=== PATIENT | female | born 1930 | race Asian ===

== ENCOUNTER 2019-08-06 11:48 | Inpatient (IN) | payer OTHER ==
[~2019-08-06] VITALS: Ht 152.4 cm; Wt 47.3 kg
[2019-08-06 11:50] VITALS: Ht 152.4 cm; Wt 47.3 kg
--- NOTE | 2019-08-06 11:59 | NUR ---
STRAIGHT CATH DONE TOLERATED WELL BY PT, URINE COLLECTED SENT TO LAB
--- NOTE | 2019-08-06 12:02 | NUR ---
PER MEDIC PT FAMILY STS THAT SHE HAD A "SYNCOPAL" EPISODE AT 1100. PER MEDIC PT FAMILY STS THAT SHE WAS UNRESPONSIVE. PER MEDIC ON ARRIVAL PT WAS ALERT AND OREITNED TO SELF. BG112, PER MEDIC PT WAS HYPOTENSIVE. PT BP RISING WITH FLUIDS GIVEN BY MEDIC. FAMILY STS PT WAS DIAGNOSED WITH UTI AND GIVEN MEDICATIONS. PER FAMILY PT DID NOT HAVE LOC OR HIT HER HEAD. PER FAMILY PT STS THAT SHE DID HURT HER LT KNEE. PER FAMILY STS A TEMP 101 YESTERDAY. PER FAMILY PT HAD STROKE AND HAS LEFT SIDED WEAKNESS. PT ABLE TO ANSWER QUESTIONS FROM FAMILY. 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 PT DENIES ANY ABDOMINAL PAIN OR ANY OTHER COMPLAINTS. PT HAS "PAIN" BANDAGE ON LEFT KNEE PER FAMILY PAIN MEDIATION PATCH. NO FACIAL DROOP NOTED. RESP E/U. RESP E/U. WILL CONTINUE TO MONITOR.
--- NOTE | 2019-08-06 12:07 | NUR ---
DR. CARMONA AT BEDSIDE.
--- NOTE | 2019-08-06 12:13 | NUR ---
CHAPARRONED RECTAL EXAM FOR OCCULT BLOOD WITH DR BROTHERS TOLERATED WELL BY PT. NEGATIVE RESULT. PTS SON AT BEDSIDE AWARE OF POC AND VERBALIZED UNDERSTANDING. VEE DE LA TORRE RN RESUMED CARE OF PT
[2019-08-06 12:17] LABS: microscopic required? YES; urine erythrocyte NEGATIVE (NEGATIVE)
[2019-08-06 12:41] LABS: BASOPHIL % 0.1 % (0-2); PLATELET COUNT 209 x10^3mcL (130-400); RED CELL DISTRIBUTION WIDTH 14.5 % (11.5-14.5)
--- NOTE | 2019-08-06 12:41 | NUR ---
XRAY AT BEDSIDE.
--- NOTE | 2019-08-06 12:42 | NUR ---
RESP AT BEDSIDE FOR ABG.
[2019-08-06 12:48] LABS: CALCIUM 6.7 mg/dL (8.5-10.1); CARBON DIOXIDE 23.5 mmol/L (21-32); CHLORIDE SERUM 108 mmol/L (98-107); CREATININE SERUM 1.5 mg/dL (0.6-1.0); GLUCOSE SERUM 102 mg/dL (74-106); POTASSIUM SERUM 4.2 mmol/L (3.5-5.1); SODIUM SERUM 139 mmol/L (136-145)
[2019-08-06 13:01] LABS: CK-MB 0.6 ng/mL (0-3.6)
[2019-08-06 13:05] LABS: T3 TOTAL 0.67 ng/mL
--- NOTE | 2019-08-06 13:13 | NUR ---
PT RETURNED FROM CT.
[2019-08-06 13:21] LABS: ERYTHROCYTE SED RATE 50 mm/hr (0-30)
[2019-08-06 13:23] LABS: T4(THYROXINE) 6.5 ug/dL (4.7-13.3)
[2019-08-06 13:24] LABS: FREE T4 1.22 ng/dL (0.76-1.46); FREE THYROXINE INDEX 2.6 ug/dL (1.4-4.5)
[2019-08-06 13:47] LABS: ALKALINE PHOSPHATASE 85 U/L (46-116); ALT/SGPT 25 U/L (14-59); AST/SGOT 35 U/L (15-37); BILIRUBIN TOTAL 0.4 mg/dL (0.20-1.00); C REACTIVE PROTEIN 2.3 mg/dL (<=0.9)
--- NOTE | 2019-08-06 13:50 | NUR ---
XRAY AT BEDSIDE.
[2019-08-06 13:53] LABS: ALBUMIN 2.5 g/dL (3.4-5.0); TOTAL PROTEIN, SERUM 5.7 g/dL (6.4-8.2)
--- NOTE | 2019-08-06 13:55 | NUR ---
PORTABLE X-RAYS IN PROGRESS.
--- NOTE | 2019-08-06 14:16 | NUR ---
PT IN POSITION OF COMFORT. VISIBLE CHEST RISE AND FALL NOTED. RESP E/U. WILL CONTINUE TO MONITOR.
[2019-08-06] MEDS ORDERED: BACTRIM DS1 TAB PO (14:49)
[2019-08-06] MEDS ORDERED: LOTENSIN40 MG PO (14:49)
[2019-08-06] MEDS ORDERED: LIPI10 PO (14:49)
[2019-08-06] MEDS ORDERED: CLOPIDOGREL300 M1 PO (14:49)
[2019-08-06] MEDS ORDERED: NAMENDA10 M2 PO (14:50)
--- NOTE | 2019-08-06 15:14 | NUR ---
REPORT GIVEN TO KATIA KRUEGER TO ASSUME CARE OF PT.
--- NOTE | 2019-08-06 15:25 | NUR ---
PATIENT RECEIVED ON UNIT ACCOMPANIED BY 2 ED RN'S. PATIENT TRANSFERRED FROM ED [facility] TO ICU BED #5 WITHOUT INCIDENT. PATIENT'S SON AT BEDSIDE ASSISTING WITH LANGUAGE AND H & P. PATIENT CONFUSED (BASELINE), SPEAKING IN YI, PUPILS REACTIVE. NO DISCHARGE OR DRAINAGE EENT NOTED. ASSESSMENT OF SKIN COMPLETED WITH BLANCHABLE REDNESS TO TO SACRAL/BUTTOCK REGION AND PATCHES OF ECCHYMOSIS TO LEFT INNER THIGH. PATIENT WITH JAMAAL BANDAGE TO LEFT KNEE (WRAPPED IN E.D) FOR SUPPORT WITH SKIN INTACT. PATIENT INCONTINENT AND VOIDED LARGE AMOUNT OF URINE. PATIENT'S SON SUGGESTED A GR CATHETER. VITALS AT ADMISSION BP 127/68 (96), HR 82, RR 20, UNABLE TO OBTAIN SPO2 PATIENT CONTIUES TO PULL ON PROBE. PRIMARY RN WILL COMPLETE FULL ASSESSMENT. WILL MONITOR PATIENT CLOSELY.
--- NOTE | 2019-08-06 15:30 | NUR ---
PATIENT'S SON REQUESTING PATIENT BE PLACED IN MITTENS PATIENT WILL PULL ON TUBING AND LINES. PATIENT WITH DEMENTIA AND ALZHEIMERS.
--- NOTE | 2019-08-06 16:20 | NUR ---
USING ASEPTIC TECHNIQUE, #16 FAROESE GR INSERTED WITH APPROXIMATELY 300 ML CLEAR YELLOW URINE NOTED IN DRAINAGE BAG. PATIENT TOLERATED WITH NO S/S OF DISTRESS NOTED. WILL CONTINUE TO MONITOR.
[2019-08-06 16:39] VITALS: BP 127/68
[2019-08-06 17:39] VITALS: BP 99/46
[2019-08-06 17:39] LABS: IRON 18 ug/dL (50-170); TOTAL IRON BINDING CAPACITY 138 ug/dL (250-450)
--- NOTE | 2019-08-06 17:42 | NUR ---
INCENTIVE SPIROMETER BROUGHT TO PTS ROOM BUT PT TOO CONFUSED AND THERE IS A LARGE LANGUAGE BARRIER SO EDUCATION WAS UNPRODUCTIVE. PT ALSO IN BILATERAL WRIST RESTRAINTS. WILL ATTEMPT AGAIN AT A LATER TIME.
--- NOTE | 2019-08-06 18:20 | NUR ---
PT IS FED. PT NO DENTURES, TOLERATE WELL TO PUREE TEXTURE, NO SWALLOWING PROBLEM. PT REST ON BED, HEART RTHYME ST NOTED EPISODE. O2 2L VIA NC APPLIED. 300ML URINE IN GR. IVF NS INFUSING AT 100ML/HR, WILL ENDORSE PT'S CARE TO COMING NURSE.
--- NOTE | 2019-08-06 19:30 | NUR ---
RECEIVED PT RESTING IN BED, SON AT BEDSIDE. PT AOX2, DENIES BURTON/DIZZINESS. RESP EVEN AND UNLABORED ON 2LNC, DENIES SOB. CTA ON RA. PULSES PALPABLE BUE, TRACE EDEMA LLE, CAP REFILL <[address] 100, DENIES CP. SKIN INTACT. PT S/P FALL AT HOME, LT KNEE WRAPPED IN JAMAAL BANDAGE, DENIES PAIN. ABD SOFT, ROUND, DENIES ABD PAIN. LBM= 08/05. IV SITE TO THE LAC PATENT, NS @ 70ML/HR. NO REDNESS, SWELLING OR PAIN NOTED. PT (+) UTI, ONE DOSE OF ROCPEHIN, DENIES DYSURIA. GR CATH DRAINING YELLOW URINE. PT ON SOFT BILAT WRIST RESTRAINTS, SKIN INTAC, CAP REFILL <3 SECS. ALL COMFORT AND SAFETY MEASURES PROVIDED FOR, CALL LIGHT WITHIN REACH, BED IN LOWEST POSITION, WILL CONTINUE TO MONITOR.
[2019-08-06 22:45] VITALS: BP 127/62
--- NOTE | 2019-08-06 23:03 | NUR ---
PAGED RESIDENT PHUONG IN REGARDS TO PT ELEVATED TEMP= 100.6, GAVE TYLENOL. PER DR BRENNER, ROCEPHIN IS QDAILY AND WILL DISCUSS WITH DAYTEAM IN REGARDS TO PT NEEDING ANOTHER DOSE GIVEN (+) UTI.
[2019-08-07] VITALS (7 sets, daily range): BP systolic 101–147; BP diastolic 42–50
--- NOTE | 2019-08-07 00:05 | NUR ---
PT RESTIGN IN BED WITH EYES CLOSED, RESP EVEN AND UNLABORED ON 2LNC. RECHECK TEMP= 99.3F AFTER TYLENOL DOSE, ORDER OBTAIND FOR 2ND ROCEPHIN DOSE IN AM FOR PT (+) UTI. PT NSR, HR 83, BP= 101/42 (66), O2 SAT= 100% ON 2LNC. BILAT UPPER SOFT WRIST RESTRAINTS REMAIN IN PLACE, REMOVED FOR 10 MINS TO ASSESS SKIN AND ALLOW PT TO STRENGTH, PT SEEN TRYING TO TUG ON GR CATH, EDUCATED PT NOT TO PULL ON GR, RETURNED WRIST RESTRAINTS FOR SAFETY. IV SITE REMAINS PATENT, NS @ 70ML/HR. NO REDNESS, SWELLING OR PAIN NOTED. ALL COMFORT AND SAFETY MEASURES PROVIDED FOR, CALL LIGHT WITHIN REACH, BED IN LOWEST POSITION, WILL CONTINUE TO MONITOR.
--- NOTE | 2019-08-07 00:35 | NUR ---
NOTIFIED MY JOURNALISTS AND OTHER WRITERS PT MAP= 53, UPON ASSESSMENT PT SLEEPING CALM IN BED, OBTAINED NEW SET OF VITALS BP= 106/43 (64) HR= 81 O2 SAT= 100% TEMP= 99.0F PAIN= 0/10 WILL CONTINUE TO MONITOR. ALL COMFORT AND SAFETY MEASURES PROVIDED FOR, CALL LIGHT WITHIN REACH, BED IN LOWEST POSITION.
--- NOTE | 2019-08-07 03:05 | NUR ---
PT RESTING IN BED W/ EYES CLOSED, SLEEPING BUT EASY TO AROUSE. EYES/EARS REMAIN FREE OF DRAINAGE/REDNESS. RESP EVEN AND UNLABORED ON 2LNC, DENIES SOB. DIM BILAT BASES. PT REMAINS NSR, 72. BP= 106/47, 100% 2LNC, RR 23, TEMP= 99.1F. DENIES PAIN DURING SHIFT. PT BP HAS BEEN FLUCUATING THROUGHOUT SHIFT, WHILE IN DEEP SLEEP PT MAP LOW 53 YET ONCE WOKEN UP, MAP RETURNS TO 61-64 RANGE. PT REMAINS ASYMPTOMATIC, DENIES LIGHTHEADEDNESS/DIZZINESS. IV SITE REMAINS PATENT TO LAC, NS @ 70ML/HR. NO REDNESS, SWELLING OR PAIN NOTED. GR CATH CONTINUES TO DRAIN YELLOW URINE, ALL COMFORT AND SAFETY MEASURES PROVIDED FOR, CALL LIGHT WITHIN REACH, BED IN LOWEST POSITION, WILL CONTINUE TO MONITOR.
--- NOTE | 2019-08-07 05:00 | NUR ---
PT RESTED IN INTERVALS DURING SHIFT, NO ACUTE CHANGES OCCURRING OVERNIGHT. PT SPIKED ONE FEVER DURING SHIFT, 100.6F, RETURNED BACK TO NORMAL RANGE WITH TYLENOL 650MG PO MIZED IN APPLE SAUCE. PT REMAINS NONDIAPHORETIC, ABLE TO MAKE NEEDS KNOWN WITH SIMPLE JESTURES. PT CLEANED, BED LINENS CHANGED, GR CATH CARE PROVIDED, PT ABLE TO BE OFF WRIST RESTRAINTS INTERMITTENTLY (15MINS AT A TIME) DURING SLEEP W/O ATTEMPTS TO PULL ON IV OR GR CATH. PT BLOOD PRESSURE WNL WHILE AWAKE, PT CALM AND COOPERATIVE WITH CARE AT THIS TIME, CALL LIGHT WITHIN REACH, BED IN LOWEST POSITION, WILL CONTINUE TO MONITOR.
[2019-08-07 05:31] LABS: BASOPHIL % 0.1 % (0-2); PLATELET COUNT 191 x10^3mcL (130-400); RED CELL DISTRIBUTION WIDTH 14.5 % (11.5-14.5)
[2019-08-07 05:41] LABS: CALCIUM 7.3 mg/dL (8.5-10.1); CARBON DIOXIDE 22.8 mmol/L (21-32); CHLORIDE SERUM 115 mmol/L (98-107); CREATININE SERUM 1.1 mg/dL (0.6-1.0); GLUCOSE SERUM 85 mg/dL (74-106); MAGNESIUM 1.9 mg/dL (1.8-2.4); PHOSPHOROUS 2.6 mg/dL (2.5-4.9); POTASSIUM SERUM 3.7 mmol/L (3.5-5.1); SODIUM SERUM 146 mmol/L (136-145)
--- NOTE | 2019-08-07 07:10 | NUR ---
RECIEVED REPORT FROM EVANS MOREL TO ASSUME ALL CARES. ALL QUESTIONS AND CONCERNS ADDRESSED. PATIENT IS CURRENTLY SLEEPING POSITIONED SUPINE WITH HOB ELEVATED 30 DEGREES AND PILLOWS IN PLACE TO ALLEVIATE PRESSURE POINTS. RESPIRATIONS ARE EQUAL AND SYMMETRICAL ON 2L NC. IVF'S INFUSING TO LAC IV WITH NO SIGNS OF INFILTRATION NOTED. F/C IN PLACE AND SECURED DRAINING YELLOW URINE VIA GRAVITY. SCD'S ON TO BLE. BED TO LOWEST POSITION, SIDE RAILS UP X3, CALL LIGHT WITHIN REACH. WILL CONTINUE TO MONITOR.
--- NOTE | 2019-08-07 08:30 | NUR ---
THERESA VEE AT BEDSIDE FOR ECHOCARDIOGRAM. WILL CONTINUE TO MONITOR.
--- NOTE | 2019-08-07 12:45 | NUR ---
DR. PRIEST AT BEDSIDE TO ASSESS PATIENT. UPDATES PROVIDED AND POC DISCUSSED. WILL CONTINUE TO MONITOR.
--- NOTE | 2019-08-07 12:50 | NUR ---
DR. SCRUGGS AT BEDSIDE TO ASSESS PATIENT. UPDATES PROVIDED AND POC DISCUSSED. WILL CONTINUE TO MONITOR.
--- NOTE | 2019-08-07 13:00 | NUR ---
DR. PHOENIX AT BEDSIDE TO ASSESS PATIENT. UPDATES PROVIDED AND POC DISCUSSED. WILL CONTINUE TO MONITOR.
--- NOTE | 2019-08-07 14:54 | NUR ---
REPORT GIVEN TO EVANS METZGER TO ASSUME ALL CARES. ALL QUESTIONS AND CONCERNS ADDRESSED. PATIENT'S SON FABRICE CALLED AND MADE AWARE PATIENT IS BEING TRANSFERRED TO TELE FLOOR ROOM 244B. PATIENT TRANSFERRED TO TELE ON SEED MILL SUPERINTENDENT ACCOMPANIED BY NURSE. ALL BELONGINGS SENT WITH PATIENT INCLUDING DENTURES.
--- NOTE | 2019-08-07 15:00 | NUR ---
GR INTACT AND DRAINING YELLOW URINE, 50 ML NOTED.
--- NOTE | 2019-08-07 15:00 | NUR ---
REC ICU TRANSFER FROM RN ZULEYMA, PT BREATHING EVEN AND UNLABORED ON RA, NO ACUTE RESP DISTRESS OR SOB NOTED/ LUNGS CTA. REMAINS ON RA. VS: 125/49 MAP 77, 99.7, 96RA, [address] 100-118. FRENCH SPK. BLANCHABLE REDNESS NOTED TO SACRAL AREA/ OPTIFORM CDI. IV TO THE LAC INTACT AND PATENT/ HEPLOCKED/ NO REDNESS OR SWELLING NOTED TO SITE. CALL LIGHT IN REACH.BED IN LOW POSITION BY NURSING STATION, BED ALARM ON. WILL CONTINUE TO MONITOR.
--- NOTE | 2019-08-07 18:35 | NUR ---
NO ACUTE CHANGES AT THIS TIME, NO ACUTE RESP DISTRESS OR SOB NOTED. IV TO THE LAC INTACT AND PATENT/ HEPLOCKED/ NO REDNESS OR SWELLING NOTED/ DR. GONSALVES AWARE. PT SON AT BEDSIDE ASKING TO SPK TO DR. GONSALVES, DR. FLAHERTY. WILL ENDORSE TO INCOMING RN.
--- NOTE | 2019-08-07 21:16 | NUR ---
RECEIVED PT IN BED AAOX1 NO ACUTE DISTRESS NOTED, LUNG SOUNDS CTA , ABD SOFT BS ACTIVE X4, ON TELE NUMBER [address], HL INTACT FLUSHING WELL , PT HAS GR CATH TO GRAVITY DRAINING WELL JOSEPH YELLOW URINE , ON AIR MATTRESS TO PREVENT SKIN BREAKDOW , PT'S SKIN IS INTACT HAS OPTIFOAM TO BUTTOCKS ON AIR-MATTRESS WELL , WILL TURN PT Q2HRS
--- NOTE | 2019-08-08 04:36 | NUR ---
PT'S IN BED WITH EYES CLOSED , TELE NSR , GR TO GRAVTY DRAINING WELL , BED ALARM ON FOR SAFTY.
[2019-08-08 06:05] VITALS: BP 102/54
[2019-08-08 06:17] LABS: BASOPHIL % 0.3 % (0-2); PLATELET COUNT 196 x10^3mcL (130-400); RED CELL DISTRIBUTION WIDTH 14.4 % (11.5-14.5)
--- NOTE | 2019-08-08 06:19 | NUR ---
NO CJANGES OF CONDITION NOTED, ALL DUE MEDS GIVEN NO REACTION NOTED, TELE NSR , GR TO GRAVITY DRAINING WELL . TURNED PT Q2-3 HRS
[2019-08-08 06:38] LABS: CARBON DIOXIDE 21.6 mmol/L (21-32); CHLORIDE SERUM 109 mmol/L (98-107); CREATININE SERUM 0.8 mg/dL (0.6-1.0); GLUCOSE SERUM 93 mg/dL (74-106); MAGNESIUM 2.1 mg/dL (1.8-2.4); PHOSPHOROUS 2.1 mg/dL (2.5-4.9); POTASSIUM SERUM 3.8 mmol/L (3.5-5.1); SODIUM SERUM 140 mmol/L (136-145)
--- NOTE | 2019-08-08 07:40 | NUR ---
RECEIVED PT IN NO ACUTE DISTRESS. AAOX1. RESP EVEN AND UNLABORED ON RA. PT'S MOUTH CLEANED WITH SPONGE AND MOUTWASH REQUESTED BY PT'S SON. IV TO LAC, NO REDNESS OR SWELLING. HOB ELEVATED. ON AIR MATTRESS. FALL AND ASPIRATION PRECAUTIONS. SON AT BEDSIDE TO ASSIST PT WITH BREAKFAST. BED IN LOW POSITION, CALL LIGHT WITHIN REACH. WILL CONTINUE TO MONITOR.
[2019-08-08 08:38] VITALS: BP 143/60
--- NOTE | 2019-08-08 12:08 | NUR ---
PT RESTING IN BED WITH EYES CLOSED, EASILY AROUSABLE. BREATHING EVEN AND UNLABORED ON RA. IV TO LAC, NO REDNESS OR SWELLING. ON AIR MATTRESS. FALL PRECAUTIONS. BED ALARM ON. SON AT BEDSIDE, UPDATED WITH PLAN OF CARE. GR CATHETER DRAINING YELLOW URINE TO GRAVITY. CALL LIGHT WITHIN REACH. WILL CONTINUE TO MONITOR.
[2019-08-08 13:09] VITALS: BP 136/55
--- NOTE | 2019-08-08 13:24 | NUR ---
Initial Nutrition Assessment: 244T/B JOSE SMITH LONG IA HR Dx: urosepsis, syncope PMHx: L sided CVA, HTN, HLD, Alzheimers dementia PSHx: Cholecystectomy, L hip replacement Labs: ALB 2.5L, CA 8.0L, HGB 10.4L Meds: Colace, lactinex, oscal, rocephin, zofran Diet: cardiac, mechanically soft- chopped PO Intake: (08/06) dinner 40% Ht: 152.4 cm (60") Wt: 47.2 kg (104#) BMI: 20.3 kg/m2 Bed scale: 47.2 kg IBW: 100# (45 kg) %IBW: 104 UBW: unable to access Age: 88/F Food Allergies: NKFA Skin: on air mattress, brown discoloration L cheek Demetrio: 15 Edema: none GI: Last BM: 08/08 Trigger: unintentional weight loss >10# x 3d Per H&P, Pt is a 88 year old female with a PMH of L sided CVA, HTN, HLD, Alzheimers dementia was BIBA after an episode of loss of consciousness. Patient was being treated for UTI by her PCP with Bactrim DS. RDN Visit (08/08): Patient was sleeping and I was unable to wake her up. Per RN Danna, pt ate about 50% breakfast this morning. Problem with: N/V/D/C: none per RN Problems with: Chewing/Swallowing: yes on mechanically soft chopped diet Current appetite: unable to access Recent wt change: unable to access %wt change: n/a Vitamin/Supplement use: unable to access Special diet at home: unable to access Physical activity: unable to access Nutrition education given: not possible at this time as patient is sleeping. Food-drug interactions: Colace- high fiber w/1734-6032 ml fluids Education given: no Estimated Nutritional Needs Based on current body weight 47.2 kg Energy: 7546-9067 kcal/d (30-35 kcal/kg) Protein: 57-66 g/d (1.2-1.4 g/kg) - geriatric maintenance Fluid: 0522-9827 ml/d (1 ml/kcal) or per doctor Nutrition Diagnosis 1. Malnutrition related to poor PO, advanced age as evidenced by PO <75%, emaciated appearance. Intervention 1. Recommend continuing cardiac, mechanically soft- chopped diet. 2. Recommend Ensure High protein BID. Discussed recommendation with BLAS Romo. Monitor/Evaluate Goal: PO intake at least 75% of estimated needs Monitor: PO intake, Labs, GI function F/U in 3-5 days as moderate risk 08/11-
--- NOTE | 2019-08-08 13:24 | NUR ---
1. Recommend continuing cardiac, mechanically soft- chopped diet. 2. Recommend Ensure High protein BID. Discussed recommendation with BLAS Romo
--- NOTE | 2019-08-08 14:05 | NUR ---
PHYSICAL THERAPY DAILY NOTES CO-SIGN All documentation done by the Firefighting Equipment Specialist for 08/08/19 has been reviewed. I agree with the documentation. Reviewed/Co-Signed by: Brenda Mcclain PT Documentation Done by:GENET JONES PTA
[2019-08-08 17:38] VITALS: BP 134/57
--- NOTE | 2019-08-08 17:44 | NUR ---
PT SITTING UP IN BED EATING DINNER, ASSISTED BY PT'S SON. NO ACUTE DISTRESS. HOB ELEVATED. ASPIRATION PRECAUTIONS IN PLACE. CALL LIGHT WITHIN REACH. WILL CONTINUE TO MONITOR.
--- NOTE | 2019-08-08 18:39 | NUR ---
PT RESTING IN BED. AWAKE, CONFUSED. RESP EVEN AND UNLABORED ON RA. PT ASSISTED TO BEDSIDE COMMODE EARLIER, HAD BM. PT CLEANED, GR CARE PROVIDED PER PROTOCOL. PT THEN ASSISTED BACK TO BED. ON AIR MATTRESS. HOB ELEVATED. FALL PRECAUTIONS. FAMILY AT BEDSIDE. IV TO LAC WITH NO REDNESS OR SWELLING. BED ALARM ON. BED IN LOW POSITION, CALL LIGHT WITHIN REACH. WILL ENDORSE TO ONCOMING SHIFT.
[2019-08-08 19:53] VITALS: BP 23/54
--- NOTE | 2019-08-08 20:54 | NUR ---
PATIENT RECEIVED AWAKE, ALERT, ORIENTED X1 IN BED. RESPIRATION EVEN AND UNLABORED, ON ROOM AIR. SALINE LOCK TO LEFT ANTECUBITAL AREA PATENT AND INTACT. TRACE EDEMA TO BLE. LBM 08/08/2019. GR CATHETER TO GRAVITY DRAINING YELLOW COLORED URINE. LEFT SIDED WEAKNESS, GENERALIZED WEAKNESS. BEDBOUND. TOTAL CARE. ON AIR MATTRESS. DARK DISCOLORATION TO LEFT BUTTOCKS, OPTIFOAM IN PLACED ON THE COCCYX AREA. DENIES PAIN AT THIS TIME. WILL CONTINUE TO MONITOR.
[2019-08-09 05:22] VITALS: BP 135/56
--- NOTE | 2019-08-09 06:00 | NUR ---
PATIENT SLEEPING IN BED. RESPIRATION EVEN AND UNLABORED, ON ROOM AIR. SALINE LOCK TO LEFT ANTECUBITAL AREA PATENT AND INTACT. NO SIGN OF DISCOMFORT/PAIN. ASSISTED WITH NEEDS. SAFETY OBSERVED. PLACED CALL LIGHT WITHIN REACH AT ALL TIMES. PLACED BED IN THE LOWEST POSITION.
[2019-08-09 06:20] LABS: BASOPHIL % 0.4 % (0-2); PLATELET COUNT 213 x10^3mcL (130-400)
[2019-08-09 06:24] LABS: RED CELL DISTRIBUTION WIDTH 14.6 % (11.5-14.5)
[2019-08-09 06:38] LABS: CALCIUM 8.3 mg/dL (8.5-10.1); CARBON DIOXIDE 27.3 mmol/L (21-32); CHLORIDE SERUM 110 mmol/L (98-107); CREATININE SERUM 0.8 mg/dL (0.6-1.0); GLUCOSE SERUM 92 mg/dL (74-106); POTASSIUM SERUM 4.3 mmol/L (3.5-5.1); SODIUM SERUM 145 mmol/L (136-145)
--- NOTE | 2019-08-09 08:05 | NUR ---
RECEIVED PATIENT FROM EVANS GUERRA. PATIENT IN BED AT THIS TIME, NO S/S OF SOB OR PAIN. SON AT BEDSIDE, FABRICE. DISCUSSED PLAN OF CARE WITH SON FOR TODAY, WILL AWAIT FOR SENIOR OFFICER MABEL TO COME SPEAK WITH SON. SON REQUESTS HOME HEALTH W PT, WALKER, AND BEDSIDE COMMODE. WILL ENDORSE TO SENIOR OFFICER MABEL. CALL LIGHT IN REACH AT THIS TIME.
[2019-08-09 08:32] VITALS: BP 152/65
--- NOTE | 2019-08-09 08:54 | NUR ---
INVESTIGATIONS DIRECTOR MABEL IN TO SPEAK WITH PATIENT AND SON. STATES PATIENT WILL STAY EXTRA DAY DT SON CONCERN OF BP. SON (FABRICE) AGREES AND VERBALIZES UNDERSTANDING. INVESTIGATIONS DIRECTOR ALSO MADE AWARE THAT SON REQUESTS HOME WALKER AND HOME BEDSIDE COMMODE. WILL WAIT FOR DR PHOENIX TO COME AND SPEAK WITH SON ABOUT CARDIAC PLAN. CALL LIGHT IN REACH, BED IN LOWEST POSITION, PATIENT ACROSS FROM NURSES STATION.
[2019-08-09 12:18] VITALS: BP 152/72
--- NOTE | 2019-08-09 13:00 | NUR ---
PATIENT ABLE TO AMBULATE W PT MIGUEL AND FWW TO DOORWAY. PATIENT SON UPDATED. CONSULTING NURSE MABEL MADE AWARE OF HYPERTENSION AND PO LISINOPRIL ORDERED. DR PHOENIX ALSO IN AT THIS TIME, WILL AWAIT DR PHOENIX TO SPEAK WITH PATIENT AND SON. CALL LIGHT IN REACH AT THIS TIME.
[2019-08-09 16:13] VITALS: BP 133/66
--- NOTE | 2019-08-09 18:18 | NUR ---
PATIENT IN BED AT THIS TIME. SON AT BEDSIDE. NO S/S OF PAIN, SOB. WILL ENDORSE TO ONCOMING NURSE. DR PHOENIX HAS NOT SEEN PATIENT THIS SHIFT. PT DELIVERED FWW FOR PATIENT. BP AGAIN WNL. CALL LIGHT IN REACH, BED IN LOWEST POSITION, PATIENT ACROSS FROM NURSES STATION.
--- NOTE | 2019-08-09 20:16 | NUR ---
RECEIVED PT IN BED AWAKE ORIENTED X2 VERBAL IN OWN DIALECT, DOESNT FOLLOW SIMPLE COMMANDS, NO S/SX OF PAIN, SMILES WHEN TALKED TO, ABLE TO MOVE BLE/BUE ON SEIZURE PREC, IV ACCESS @ RFA PATENT NON INFIL, F/C DRAINING FREELY LIGHT YELLOW URINE OUTPUT, ABD SOFT NON TENDER BS ACTIVE, HAD BM X2 TODAY PER REPORT, RECHECKED BP 132/73, HR 93, SATURATING 99% RA, SHIFT ASSESSMENT DONE, BED ALARM ON FOR SAFETY, CONT TO MONITOR AND PROCEED TO CURRENT PLAN OF CARE.
[2019-08-09 20:34] VITALS: BP 132/73
--- NOTE | 2019-08-09 22:03 | NUR ---
START BLADDER RETRAINING AT THIS TIME, CLAMPED GR CATH PER PROT.
--- NOTE | 2019-08-10 01:00 | NUR ---
PT AWAKE TRIED TO GET OUT OF BED, BED ALARM WENT ON, FACILITATED PT TO BED AND KEEP COMFORTABLE, CONT ON BLADDER RETRAINING, CLOSELY MONITORED.
[2019-08-10 04:29] VITALS: BP 144/68
[2019-08-10 06:34] LABS: BASOPHIL % 0.5 % (0-2); PLATELET COUNT 265 x10^3mcL (130-400); RED CELL DISTRIBUTION WIDTH 14.3 % (11.5-14.5)
[2019-08-10 06:45] LABS: CALCIUM 8.2 mg/dL (8.5-10.1); CARBON DIOXIDE 28.5 mmol/L (21-32); CHLORIDE SERUM 107 mmol/L (98-107); CREATININE SERUM 0.8 mg/dL (0.6-1.0); GLUCOSE SERUM 96 mg/dL (74-106); POTASSIUM SERUM 4.3 mmol/L (3.5-5.1); SODIUM SERUM 144 mmol/L (136-145)
--- NOTE | 2019-08-10 07:04 | NUR ---
EMPTIED 1800 CC URINE OUTPUT PALE YELLOW FROM GR, BLADDER RETRAINING CONTINUES, WILL ENDORSE TO INCOMING SHIFT FOR F/U CARE.
--- NOTE | 2019-08-10 07:35 | NUR ---
RECEIVED REPORT FROM [facility] NURSE, SON NOW AT BEDSIDE. PATIENT ALERT AND ORIENTED TO SELF AND TO PLACE AT TIMES, FORGETFUL W/ ALZ DEMENTIA HX. SZ PREC IN PLACE. DENIES PAIN. LUNGS CTA, SOMEWHAT DIM TO BASES. BREATHING E/U AT REST ON RA. PERIPHERAL PULSES PALPABLE, TRACE EDEMA NOTED TO BLE'S. BOWEL SOUNDS ACTIVE, NO SIGN OF N/V. GR IN PLACE DRAINING CLEAR LIGHT YELLOW URINE TO GRAVITY. AIR MATTRESS IN PLACE. IV ACCESS TO RFA SITE WNL. CALL LIGHT WITHIN REACH, BED ALARM ON AND AT LOWEST POSITION. ORAL CARE PROVIDED PRIOR TO SON ASSISTING W/ FEEDING.
[2019-08-10 08:16] VITALS: BP 161/72
[2019-08-10 08:29] VITALS: BP 131/71
--- NOTE | 2019-08-10 08:45 | NUR ---
PATIENT RECEIVED BREATHING TREATMENT FROM RT AT BEDSIDE, TOLERATED WELL. O2 SAT 100 ON RA. PATIENT REQUESTING TO USE RESTROOM FOR BM. PT NOW AT BEDSIDE AMBULATING PATIENT TO RESTROOM W/ WALKER, SHUFFLING AND STATES MILD PAIN PRESENT TO LEFT KNEE, PER SON PATIENT HAD A RECENT FALL AT HOME. PATIENT DID NOT HAVE A BM, ASSISTED BACK TO BED, TOLERATED FAIRLY W/ GENERALIZED WEAKNESS. NUCLEAR MEDICAL TECH MABEL CAME TO BEDSIDE SPOKE W/ SON, INFORMED HIM OF PLAN OF CARE, DISCHARGING PATIENT TODAY W/ ANTIBIOTICS AND BP MED DOSE ADJUSTED. FWW DME ALREADY SUPPLIED AND SON RECEIVED. OK TO DC GR, BLADDER TRAINING INITIATED. LEFT BUTTOCK DISCOLORATION NOTED, OPTIFOAM TO SACROCOCCYX. NO ACTIVE BLEEDING/DRAINAGE. WILL CONT TO MONITOR.
--- NOTE | 2019-08-10 09:45 | NUR ---
PATIENT ATTEMPTING TO GET OUT OF BED, BED ALARM ON. MAILE CERVANTES'D PER ORDER, 300ML CLEAR YELLOW URINE. ASSISTED PATIENT W/ WALKER TO RESTROOM, HAD BM NORMAL STOOL. GOWN AND LINENS CHANGED, BEDBATH GIVEN. AM DUE MEDICATIONS GIVEN AND TOLERATED WELL, NO DIFFICULTY SWALLOWING PILLS OBSERVED. CALL LIGHT WITHIN REACH, BED ALARM ON AND AT LOWEST POSITION. WILL CONT TO MONITOR.
[2019-08-10] MEDS ORDERED: ZES10 PO (10:44)
[2019-08-10] MEDS ORDERED: NITROFURANTOIN100 MG PO (10:44)
[2019-08-10 11:56] VITALS: BP 131/71
--- NOTE | 2019-08-10 12:30 | NUR ---
PICTURE TAKEN OF LT BUTTOCK DISCOLORATION, CHARTED.
--- NOTE | 2019-08-10 13:01 | NUR ---
SON AT BEDSIDE ASSISTED W/ FEEDINGS, PATIENT TOLERATED LUNCH WELL. DISCHARGE INSTRUCTIONS AND PRESCRIPTION GIVEN, VERBALZIED UNDERSTANDING. IV DC'D CATH INTACT. ALL QUESTIONS/CONCERNS ADDRESSED.
--- NOTE | 2019-08-10 14:00 | NUR ---
PHYSICAL THERAPY DAILY NOTES CO-SIGN All documentation done by the Division Director for 08/10/19 has been reviewed. I agree with the documentation. Reviewed/Co-Signed by: Brenda Mcclain PT Documentation Done by: GENET JONES PTA
== END 2019-08-10 13:26 | disposition home health service (06) | DRG 871 ==
LOC: ED 11:48 → IC 14:37 → DU 08-07 15:00 → MU 08-09 13:41
PROVIDERS: Specialist; ADMIT Internal Medicine
DX: A41.9 Sepsis, unspecified organism (principal); E43 Unspecified severe protein-calorie malnutrition; N17.0 Acute kidney failure with tubular necrosis; N39.0 Urinary tract infection, site not specified; I69.354 Hemiplegia and hemiparesis following cerebral infarction affecting left non-dominant side; Z68.1 Body mass index [BMI] 19.9 or less, adult; E86.0 Dehydration; B96.20 Unspecified Escherichia coli [E. coli] as the cause of diseases classified elsewhere; I95.9 Hypotension, unspecified; R55 Syncope and collapse; E83.51 Hypocalcemia; S83.92XA Sprain of unspecified site of left knee, initial encounter; E78.5 Hyperlipidemia, unspecified; D50.0 Iron deficiency anemia secondary to blood loss (chronic); G30.9 Alzheimer's disease, unspecified; F02.80 Dementia in other diseases classified elsewhere, unspecified severity, without behavioral disturbance, psychotic disturbance, mood disturbance, and anxiety; Z96.642 Presence of left artificial hip joint; Z91.81 History of falling; W17.89XA Other fall from one level to another, initial encounter; Y92.013 Bedroom of single-family (private) house as the place of occurrence of the external cause
CPT/HCPCS: 36600; 84439; 97116-GP; 97530-GP; G0378; J0696; J7030; J7050; J7620; Q0092

== ENCOUNTER 2019-08-25 20:21 | Inpatient (IN) | payer OTHER ==
[~2019-08-25] VITALS: Ht 152.4 cm; Wt 41.7 kg
[~2019-08-25 20:21] MED LIST: BACTRIM DS1 TAB PO; CLOPIDOGREL300 M1 PO; LIPI10 PO; LOTENSIN40 MG PO; NAMENDA10 M2 PO; NITROFURANTOIN100 MG PO; ZES10 PO
--- NOTE | 2019-08-25 20:45 | NUR ---
PT BIBA FOR GEN WEAKNESS ONSET TODAY. PER SON PT ACTING BASELINE, JUST WEAKER. SON ALSO STS HX OF FREQUENT UTIS AND WAS ADMITTED LAST MONTH FOR SAME REASON. PT CONNECTED TO FULL CM. MSE BY DR KELLY.
--- NOTE | 2019-08-25 20:58 | NUR ---
XRAY AT BEDSIDE FOR CXR AT THIS TIME. SON REMAINS AT BEDSIDE.
[2019-08-25 21:04] LABS: UA SPECIFIC GRAVITY 1.015 (1.005-1.035); microscopic required? YES; urine erythrocyte NEGATIVE (NEGATIVE)
[2019-08-25 21:25] LABS: PLATELET COUNT 189 x10^3mcL (130-400); RED CELL DISTRIBUTION WIDTH 14.5 % (11.5-14.5)
[2019-08-25 21:26] LABS: BASOPHIL % 0 % (0-2)
[2019-08-25 21:34] LABS: CALCIUM 7.5 mg/dL (8.5-10.1); CARBON DIOXIDE 23.4 mmol/L (21-32); CHLORIDE SERUM 109 mmol/L (98-107); CREATININE SERUM 1.6 mg/dL (0.6-1.0); GLUCOSE SERUM 94 mg/dL (74-106); POTASSIUM SERUM 3.9 mmol/L (3.5-5.1); SODIUM SERUM 142 mmol/L (136-145)
[2019-08-25 21:39] LABS: ALBUMIN 2.8 g/dL (3.4-5.0); ALKALINE PHOSPHATASE 97 U/L (46-116); ALT/SGPT 39 U/L (14-59); AST/SGOT 57 U/L (15-37); BILIRUBIN TOTAL 0.4 mg/dL (0.20-1.00)
--- NOTE | 2019-08-25 21:59 | NUR ---
PT RESP E/U WITH EYES CLOSED; EASILY AROUSABLE TO VERBAL STIMULI. PT BP CUFF CHANGED TO MORE APPROPRIATE SIZE. MD MADE AWARE OF BP.
--- NOTE | 2019-08-25 23:58 | NUR ---
PT AWAKE ALERT, RESP E/U. PT URINATED IN BED; CHANGED LINENS; PT CLEANED BY EMT CORRINA. PT IN NO DISTRESS.
--- NOTE | 2019-08-26 00:33 | NUR ---
DOPAMINE DRIP INITIATED AT 5MCG PER HR PER MD ORDER.
--- NOTE | 2019-08-26 01:03 | NUR ---
MD KELLY AWARE TO PTS CURRENT VITALS. PT RESP E/U, NO DISTRESS. RESPONDS TO VOICE. REMAINS CONNECTED TO FULL CM.
--- NOTE | 2019-08-26 01:09 | NUR ---
RESIDENT AT BEDSIDE TO SPEAK WITH SON AND PT.
[2019-08-26 01:11] LABS: MAGNESIUM 1.9 mg/dL (1.8-2.4); PHOSPHOROUS 2.8 mg/dL (2.5-4.9)
--- NOTE | 2019-08-26 01:31 | NUR ---
HR NOTED IN THE 140'S. MD KELLY MADE AWARE. OKAY TO PAUSE DRIP AT THIS TIME.
--- NOTE | 2019-08-26 01:36 | NUR ---
REPORT GIVEN TO EVANS DRUMMOND TO ASSUME CARE.
[2019-08-26 01:43] LABS: CHOLESTEROL/HDL RATIO 2.6
--- NOTE | 2019-08-26 01:49 | NUR ---
RECIEVED REPORT FROM JOSE KRUEGER TO ASSUME CARE OF PT.
--- NOTE | 2019-08-26 02:15 | NUR ---
PT HR APPEARED ELEVATED ON MONITOR FROM NURSES STATION, UPON ENTERING PT ROOM, PT WAS SEEN REMOVING LEADS AND ATTEMPTING TO REMOVE HER PULSE OX AND HAD ALREADY REMOVED HER IV. PT CLEANED UP AND REPLACED LEADS AND REPOSITIONED TO COMFORT. WILL PLACE NEW IV.
--- NOTE | 2019-08-26 03:19 | NUR ---
PT PLACED IN LAMINE UPPER EXTREMIITES IN SOFT RESTRAINTS PER ORDER FOR PT SAFETY. PT REPOSITIONED TO COMFORT. PT PROVIDED WITH HAND TOWEL TO HOLD IN RIGHT HAND WHEN PT APPEARED TO CONTINUOUSLY REACH FOR HAND RAILS AND/OR MY HAND TO HOLD.
--- NOTE | 2019-08-26 04:10 | NUR ---
PT IS RESTING IN POSITION OF COMFORT. NO DISTRESS NOTED. RESP EVEN AND UNLABORED. BP IMPROVED WITH MAP OF 75 AT THIS TIME. NO TITRATION OF MEDICATION HAS BEEN NEEDED.
--- NOTE | 2019-08-26 04:25 | NUR ---
INFORMED BY [facility] THAT PT HAD REMOVED RESTRAINT FROM RIGHT WRIST. PT RESTRAINT PLACED BACK ON. POSITIONED TO COMFORT.
[2019-08-26 04:30] LABS: PLATELET COUNT 225 x10^3mcL (130-400)
[2019-08-26 04:34] LABS: BASOPHIL % 0 % (0-2); RED CELL DISTRIBUTION WIDTH 14.6 % (11.5-14.5)
--- NOTE | 2019-08-26 04:45 | NUR ---
PT NOTED TO HAVE REMOVED LEFT RESTRAINT. PT RESTRAINT PLACED BACK ON AND RE-ADJUSTED.
[2019-08-26 04:46] LABS: CALCIUM 7.3 mg/dL (8.5-10.1); CARBON DIOXIDE 25.4 mmol/L (21-32); CHLORIDE SERUM 110 mmol/L (98-107); CREATININE SERUM 1.3 mg/dL (0.6-1.0); GLUCOSE SERUM 102 mg/dL (74-106); MAGNESIUM 1.7 mg/dL (1.8-2.4); PHOSPHOROUS 2.7 mg/dL (2.5-4.9); POTASSIUM SERUM 3.6 mmol/L (3.5-5.1); SODIUM SERUM 142 mmol/L (136-145)
--- NOTE | 2019-08-26 06:04 | NUR ---
PT RESTING IN POSITION OF COMFORT, PT PULLLING AT RIGHT ARM
--- NOTE | 2019-08-26 07:06 | NUR ---
REPORT RECEIVED FROM BHANU KRUEGER. PER REPORT PT'S PENDING ORDERS TO BE ADMINISTERED UPON "PLACING CENTRAL LINE WHEN PT IS TRANFERRED TO ICU".
--- NOTE | 2019-08-26 07:15 | NUR ---
REPORT GIVEN TO EVANS SHERMAN TO ASSUME CARE OF PT.
--- NOTE | 2019-08-26 07:32 | NUR ---
PT NOTED TO BE SOILED, PT CHANGED AND CLEANED, SHEETS OF GURNEY ALSO CLEANED, BLANCHABLE ERYTHEMA NOTED TO PT'S BUTTOCKS WELL ECCHYMOSIS TO R FA. PT TOLERATED WELL, SON AT BEDSIDE FOR TRANSLATION. VSS. ON FULL CM, CALL LIGHT WITHIN REACH, LAMINE RAILS RAISED FOR SAFETY, LAMINE UPPER EXTREMETY RESTRAINTS IN PLACE, +PMSC NOTED.
--- NOTE | 2019-08-26 08:05 | NUR ---
IV PATENT NO S/S OF INFILTRATION, EASY FLUSH WITH 10CC OF NS.
--- NOTE | 2019-08-26 08:09 | NUR ---
PT MEDICATED PER EMAR FOR PRN TYLENOL FOR TEMP OF 100.8.
--- NOTE | 2019-08-26 08:15 | NUR ---
REPORT GIVEN TO LEAH RN TO ASSUME CARE OF PT.
--- NOTE | 2019-08-26 08:20 | NUR ---
PATIENT BROUGHT IN AT THIS TIME FROM ER BY NURSE AND EMT. PATIENT IS CONFUSED AT THIS TIME. SPANISH SPEAKER, SON AT BEDSIDE FOR TRANSLATION. PATIENT IS ON 2 L NASAL CANNULA. PATIENT IS BREATHING ADEQUATELY WITH NO SIGNS OF RESPIRATORY DISTRESS. PAINT SPRAY INSPECTOR IN PLACE, NSR. PATIENT HAS IV ACCESS NOTED TO LFA. NEOSYNEPHRINE IS INFUSING AT THIS TIME. 50 MCG/MIN. SKIN IS INTACT, BILATERAL SOFT WRIST RESTRAINTS APPLIED FOR PATIENT SAFETY, PATIENT ATTEMPTING TO PULL AT LINES AND IV ACCESS. CAP REFILL LESS THAN 3 SECONDS, 2 FINGER SPACE NOTED. OPTIFOAM APPLIED TO SACRAL AREA FOR PROTECTION. HEELS OFFLOADED WITH PILLOWS. SON AT BEDSIDE. PATIENT STABLE, WILL CONTINUE TO MONITOR.
[2019-08-26 08:38] VITALS: BP 137/47
--- NOTE | 2019-08-26 09:25 | NUR ---
DR. MILLS AT BEDSIDE. ALL UPDATES GIVEN. WILL AWAIT ORDERS FOR FLUIDS AT THIS TIME.
--- NOTE | 2019-08-26 11:00 | NUR ---
ARISTEO LOWERED AT THIS TIME, 45 MCG/MIN. PATIENT B/P: 103/44 MAP: 70. WILL CONTINUE TO MONITOR. PATIENT STABLE AT THIS TIME, NO SIGNS OF DISTRESS.
[2019-08-26 11:35] VITALS: BP 106/44
--- NOTE | 2019-08-26 12:03 | NUR ---
NOTED LIPS TO BE DRY AT THIS TIME, ORAL CARE PROVIDED TO PATIENT.
--- NOTE | 2019-08-26 12:08 | NUR ---
ARISTEO LOWERED TO 40 MCG/MIN AT THIS TIME. B/P: 120/45 MAP: 70. WILL CONTINUE TO MONITOR.
--- NOTE | 2019-08-26 14:56 | NUR ---
ARISTEO LOWERED TO 35 MCG/MIN. B/P: 120/47 MAP: 67. PATIENT STABLE, WILL CONTINUE TO MONITOR.
[2019-08-26 15:03] VITALS: BP 120/47
--- NOTE | 2019-08-26 15:43 | NUR ---
ARISTEO LOWERED TO 30 MCG/MIN. B/P: 136/45 MAP:68. WILL CONTNIUE TO MONITOR.
--- NOTE | 2019-08-26 16:07 | NUR ---
ARISTEO LOWERED TO 25 MCG/MIN AT THIS TIME. B/P: 133/49 MAP:77. WILL CONTINUE TO MONITOR.
--- NOTE | 2019-08-26 16:45 | NUR ---
GOWN AND LINENS CHANGED AT THIS TIME.
--- NOTE | 2019-08-26 16:52 | NUR ---
ARISTEO 25 MCG/MIN. B/P: 125/51 MAP:74, WILL CONTINUE TO MONITOR.
--- NOTE | 2019-08-26 18:04 | NUR ---
NEOSYN TITRATED TO 18MCG/MIN, NIBP 121/69 MAP 86. WILL CONT TO MONITOR.
--- NOTE | 2019-08-26 18:23 | NUR ---
TITRATED ARISTEO DOWN TO 15 MCG/MIN. MAP: 86 WILL CONTINUE TO MONITOR.
--- NOTE | 2019-08-26 19:23 | NUR ---
REPORT GIVEN TO EVANS PATRICIO AT THIS TIME. ALL QUESTIONS ANSWERED.
[2019-08-26 19:30] VITALS: BP 112/57
--- NOTE | 2019-08-27 00:13 | NUR ---
08/26/[address] GONSALVES AND DR NOGUERA TO ICU TO ASEESS PATIENT. DR. GONSALVES ATTMPTED TO CALL PATIENT'S SON TO OBTAIN CONSENT FOR CENTRAL LINE FOR LEVOPHED. NO ANSWER ON SONS PHONE NUMBER, MESSAGE LEFT FOR SON TO CALL RN IN THE ICU. MD'S UNABLE TO INSERT CENTRAL LINE UNTIL CONSENT IS RECEIVED FROM SON. \
[2019-08-27 04:00] VITALS: BP 102/58
[2019-08-27 05:25] LABS: BASOPHIL % 0.1 % (0-2); PLATELET COUNT 152 x10^3mcL (130-400)
[2019-08-27 05:29] LABS: RED CELL DISTRIBUTION WIDTH 15.5 % (11.5-14.5)
[2019-08-27 05:35] LABS: CARBON DIOXIDE 20.9 mmol/L (21-32); CHLORIDE SERUM 111 mmol/L (98-107); CREATININE SERUM 0.9 mg/dL (0.6-1.0); GLUCOSE SERUM 150 mg/dL (74-106); MAGNESIUM 1.7 mg/dL (1.8-2.4); PHOSPHOROUS 2.2 mg/dL (2.5-4.9); SODIUM SERUM 143 mmol/L (136-145)
[2019-08-27 07:39] VITALS: BP 115/55
--- NOTE | 2019-08-27 08:37 | NUR ---
PATIENT URINATED AT THIS TIME, CHUCKS AND LINEN CHANGED AT THIS TIME. PATIENT ALSO CLEANSED. PATIENT PROVIDED WITH ORAL CARE, AND WATER AT THIS TIME. PATIENT STABLE WILL CONTINUE TO MONITOR. FAMILY AT BEDSIDE ASSISTING PATIENT WITH MORNING BREAKFAST, NO PROBLEMS NOTED.
[2019-08-27 08:57] VITALS: Ht 152.4 cm; Wt 41.7 kg
--- NOTE | 2019-08-27 09:35 | NUR ---
PATIENT URINATED AT THIS TIME, CHUCKS CHANGED AND PATIENT CLEANSED. WILL CONTINUE TO MONITOR.
--- NOTE | 2019-08-27 09:55 | NUR ---
PATIENT HAD A LOOSE DARK BOWEL MOVEMENT AT THIS TIME. CHUCKS CHANGED AND PATIENT CLEANSED AT THIS TIME. WILL CONTINUE TO MONITOR.
[2019-08-27 11:45] VITALS: BP 142/44
--- NOTE | 2019-08-27 12:55 | NUR ---
PATIENT URINATED AT THIS TIME. CHUCKS CHANGED AND GOWN. ALSO CLEANSED PT. WILL CONTINUE TO MONITOR.
--- NOTE | 2019-08-27 13:06 | NUR ---
PATIENTS SONS AT BEDSIDE STATES THAT PATIENT SAYS HER IV SITE IS WRAPPED TOO TIGHT. IV ACCESS ASSESSED AND PATENT. COBAN REMOVED AND REAPPLIED, PT STS THAT IT IS MORE COMFORTABLE AT THIS TIME. WILL CONTINUE TO MONITOR.
--- NOTE | 2019-08-27 14:44 | NUR ---
PATIENT URINATED AT THIS TIME. PATIENT CLEANSED AND CHUCKS CHANGED AT THIS TIME. WILL CONTINUE TO MONITOR.
[2019-08-27 15:05] VITALS: BP 138/80
--- NOTE | 2019-08-27 16:47 | NUR ---
PATIENT TRANSFERRED AT THIS TIME VIA BED. PATIENT STABLE AND FREE FROM ANY SIGNS OF DISTRESS. O2 TANK TAKEN, PATIENTS CHART, AND MEDICATIONS TAKEN. EVANS GILL AT BEDSIDE. ALL QUESTIONS ANSWERED.
--- NOTE | 2019-08-27 16:50 | NUR ---
RECEIVED PATIENT AWAKE/ALERT TO NAME ONLY, SPEAKING SWEDISH TO PATIENT. TELE #2 NOTED. IV TO LAC INTACT. CONT TO MONITOR.
--- NOTE | 2019-08-27 17:16 | NUR ---
PATIENT ALREADY REMOVE HER TELE TELL PATIENT IS VERY IMPORTANT TO KEEP IT CONNECTED TO TELL IF YOUR HER BEATING OKAY PATIENT LAUGH ABOUT IT; HR 116 PATIENT CONSTANTLY MOVING VERY HARD TO REACH THE RHYTHM. CONT TO MONITOR
--- NOTE | 2019-08-27 18:00 | NUR ---
PLACE ON BILATERAL WRIST RESTRAINT, PATIENT STILL OCCAS LOOSENING HER SOFT WRIST RESTRAINT AND GOT OUT OF RESTRAINT. BED ALARM ON. PT'S SON BREA AT BEDSIDE INFORM OF RESTRAINT. CALL LIGHT WITHIN REACH
--- NOTE | 2019-08-27 18:10 | NUR ---
HORIZONTAL DRILL OPERATOR AT BEDSIDE FEEDING PATIENT, ATIVAN 0.5MG IVP GIVEN AFTER INSERTED NEW IV TO LW #22G CONT IVF ORDERED. BED ALARM IN PLACE. PATIENT AWAKE/ALERT VERY FORGETFUL, DOESN'T REMEMBER PULL OUT LINE. CONT TO MONITOR.
--- NOTE | 2019-08-27 19:35 | NUR ---
RECEIVED PT FROM DAY SHIF RN. PT AWAKE ALERT TO NAME ONLY. BREATHING EVEN AND UNLABORED ON NC 1L/MIN NO SOB NOTED. TELE #2 SR HR 76. SON AT BEDSIDE TO HELP WITH LANGUAGE BARRIER. PT DENIES PAIN/DISCOMFORT. ABD SOFT ROUND, ACTIVE BOWEL SOUNDS. DENIES ABD PAIN/N/V. LAMINE SOFT RESTRAINTS D/T PT REMOVING MED EQUIPMENT. IV LW PATENT. NO SIGNS OF DISTRESS. CALL BUTTON WITHIN REACH. SAFETY PRECAUTIONS IN PLACE. WILL CONTINUE TO MONITOR.
[2019-08-27 20:15] VITALS: BP 135/58
--- NOTE | 2019-08-27 21:40 | NUR ---
PT CONTINUE TO BE RESTLESS, REMOVING SOFT RESTRAINT, AND HEART MONITOR. DR GONSALVES MADE AWARE AND AWAITING NEW ORDER.
--- NOTE | 2019-08-27 23:51 | NUR ---
PT CONT. TO BE RESTLESS AND REMOVING SOFT RESTRAINTS. DR GONSALVES MADE AWARE. MEDICATED PER EMAR. WILL MONITOR.
--- NOTE | 2019-08-28 01:27 | NUR ---
PT RESTING. BREATHING EVEN AND UNLABORED NC 1L/MIN IN PLACE. NO SOB NOTED. IV PATENT, INFUSING WELL. LAMINE SOFT RESTRAINTS IN PLACE, SKIN/CIRCULATION WNL. NO SIGNS OF DISTRESS. CALL BUTTON WITHIN REACH. SAFETY PRECAUTIONS IN PLACE. WILL MONITOR.
--- NOTE | 2019-08-28 05:19 | NUR ---
PT SLEPT POORLY THROUGHOUT THE NIGHT. PT CONTINUE TO BE RESTLESS AND TAKING OFF SOFT RESTRAINTS. PT MEDICATED PER EMAR WITH SOME RELEIF. PT IV PATENT INFUSING WELL WITH NO SIGNS OF INFILTRATION. PT TURN AND REPOSITION Q2HRS. NO SIGNS OF ACUTE DISTRESS. CALL BUTTON WITHIN REACH. SAFETY PRECAUTIONS IN PLACE. LAMINE SOFT RESTRAINTS, SKIN/CIRCULATION WNL. CONTACT ISOLATION. WILL CONTINUE TO MONITOR AND ENDORSE CARE TO DAY SHIFT RN.
[2019-08-28 05:31] VITALS: BP 135/62
[2019-08-28 07:01] LABS: CALCIUM 7.5 mg/dL (8.5-10.1); CARBON DIOXIDE 24.7 mmol/L (21-32); CHLORIDE SERUM 115 mmol/L (98-107); CREATININE SERUM 0.6 mg/dL (0.6-1.0); GLUCOSE SERUM 122 mg/dL (74-106); MAGNESIUM 2.1 mg/dL (1.8-2.4); PHOSPHOROUS 2.2 mg/dL (2.5-4.9); POTASSIUM SERUM 3.5 mmol/L (3.5-5.1); SODIUM SERUM 148 mmol/L (136-145)
[2019-08-28 07:06] LABS: BASOPHIL % 0.1 % (0-2); PLATELET COUNT 158 x10^3mcL (130-400)
--- NOTE | 2019-08-28 07:46 | NUR ---
PT RESTING, DENIES ANY PAIN NO SIGNS OF DISTRESS. SON AT BEDSIDE. ENDORSED CARE TO DAY SHIFT RN, ALL QUESTIONS ADDRESSED.
[2019-08-28 09:34] VITALS: BP 146/76
--- NOTE | 2019-08-28 09:40 | NUR ---
08/28/19: 0725: PATIENT REPORT RECEIVED FROM EVANS HERNANDEZ. PATIENT FOUND IN BED RESTING. PATIENT ON CONTACT ISOLATION PRECAUTION FOR ESBL OF URINE. NO SIGNS OF DISTRESS NOTED. SON AT BEDSIDE TO ASSIST PATIENT WITH REPOSITIONING AND EATING. WILL CONTINUE TO MONITOR. CALL LIGHT WITHIN REACH.
[2019-08-28 13:06] VITALS: BP 138/71
--- NOTE | 2019-08-28 15:32 | NUR ---
NEW 22G IV ON LEFT WRIST. NO S/S INFILTRATION NOTED. IV SITE CLEAN, DRY, AND PATENT.
--- NOTE | 2019-08-28 15:49 | NUR ---
PATIENT RESTING IN BED. NO SIGNS OF IMMINENT DISTRESS NOTED. BILATERAL SOFT WRIST RESTRAINTS APPLIED BACK ON TO PATIENT PER RESTRAINT ORDER DUE TO INCREASED CONFUSION. WILL CONTINUE TO MONITOR. CALL LIGHT WITHIN REACH.
[2019-08-28 16:52] VITALS: BP 139/62
--- NOTE | 2019-08-28 18:39 | NUR ---
PATIENT KEPT COMFORTABLE IN BED. SON AT BEDSIDE. RESTRAINTS OFF AT MOMENT. NO SIGNS OF DISTRESS NOTED. PATIENT ON CONTACT PRECAUTION FOR ESBL OF URINE. WILL CONTINUE TO MONITOR. CALL LIGHT WITHIN REACH.
--- NOTE | 2019-08-28 19:30 | NUR ---
RECEIVED PATIENT IN BED AWAKE QUITE, NON COMBATIVE WITH NO SIGN OF ACUTE RESPIRATORY DISTRESS. BREATHING EASY AND NONLABOR ON O2 AT 2L VIA NC SATTING AT 98%. TELE# 2 SR/ST ON MONITOR, NO INDICATION OF CHEST DISCOMFORT NOTED. IV TO LW INTACT AND INFUSING WELL. SOFT WRIST RESTRAINTS TO BIATERAL WRIST WITH GOOD CIRCULATION. WILL CONTINUE TO MONITOR. CALL LIGHT WITHIN REACH.
[2019-08-28 21:22] VITALS: BP 148/67
--- NOTE | 2019-08-28 21:42 | NUR ---
TRIED TO RELEASE SOFT WRIST RESTRAINTS AFTER ONLY 20MIN PATIENT PULLED HER IV ,REINSERTED TO RT FOREARM INTACT AND INFUSING WELL. WILL CONTINUE TO MONITOR.
--- NOTE | 2019-08-29 00:16 | NUR ---
APPEAR TO BE SLEEPING THIS TIME, BREATHING EASY AND NONLABOR. WILL CONTINUE TO MONITOR.
--- NOTE | 2019-08-29 05:12 | NUR ---
SLEPT AT LONG INTERVALS, NO INDICATION OF PAIN AND DISCOMFORT NOTED THE ENTIRE SHIFT. REPOSITIONED FOR COMFORT. ALL NEEDS ATTENDED.
[2019-08-29 06:08] VITALS: BP 156/86
[2019-08-29 06:48] LABS: BASOPHIL % 0.2 % (0-2); PLATELET COUNT 193 x10^3mcL (130-400)
--- NOTE | 2019-08-29 07:05 | NUR ---
RECEIVED BEDSIDE REPORT FROM EMERGENCY CARE ATTENDANT NURSE AT THIS TIME. PATIENT RESTING COMFORTABLY IN BED. NO APPARENT DISTRESS OR DISCOMFORT NOTED. BREATHING EVEN AND UNLABORED WITH 1L NC IN PLACE. NO INDICATION OF CHEST PAIN/PRESSURE AT THIS TIME. PER EMERGENCY CARE ATTENDANT BILAT SOFT RESTRAINTS WERE REMOVED BY HER THIS AM. PATIENT IS CALM AND RESTING AT THIS TIME. IV PATENT AND INTACT. ALL QUESTIONS AND CONCERNS ADDRESSED. ALL NEEDS ATTENDED TO. WILL CONTINUE TO MONITOR
[2019-08-29 07:10] LABS: CALCIUM 7.8 mg/dL (8.5-10.1); CARBON DIOXIDE 23.6 mmol/L (21-32); CHLORIDE SERUM 112 mmol/L (98-107); CREATININE SERUM 0.8 mg/dL (0.6-1.0); GLUCOSE SERUM 121 mg/dL (74-106); PHOSPHOROUS 2.2 mg/dL (2.5-4.9); POTASSIUM SERUM 3.6 mmol/L (3.5-5.1); SODIUM SERUM 144 mmol/L (136-145)
[2019-08-29 07:12] LABS: RED CELL DISTRIBUTION WIDTH 14.9 % (11.5-14.5)
[2019-08-29] MEDS ORDERED: MER500I IV (08:26)
[2019-08-29 08:57] VITALS: BP 140/57; BP 161/52
--- NOTE | 2019-08-29 09:48 | NUR ---
ALL MORNING MEDICATIONS ADMINISTERED. PATIENT TOLERATED MEDICATIONS WELL. NO APPARENT ADVERSE EFFECTS NOTED. ALL NEEDS ATTENDED TO. WILL CONTINUE TO MONITOR
--- NOTE | 2019-08-29 11:43 | NUR ---
Initial Nutrition Assessment: 212T/A JOSE SMITH LONG IA HR Dx: Sepsis, UTI PMHx: Alz dementia, past L sided CVA, HTN, HLD, and recent UTI PSHx: Cholecystectomy, Other (L hip replacement) Labs: BG 121H, CA 7.8L, P 2.2L, ALB 2.8L, HGB 10.5L Meds: Colace, Lipitor, norco, Pepcid, Zestril, Zofran, heparin Diet: Puree with Ensure BID PO intake since admission: (08/29) breakfast 50%, (08/28) breakfast 75%, lunch 50%, dinner 80% Ht: 152.4 cm (60") Wt: 41.7 kg (92#) BMI: 18 kg/m2 Bed scale: 72# (likely error) IBW: 100# (45 kg) %IBW: 92 UBW: 97# Age: 88/F Food Allergies: NKFA Skin: erythema to sacrum Demetrio: 13 Edema: none GI: Last BM: 08/29 Trigger: poor PO >3d, appears underweight/malnourished Pt is a 88yoF with PMH Alz dementia, past L sided CVA, HTN, HLD, and recent UTI who presents to the ED from home with son c/o generalized weakness and hypotension with associated subjective fever and chills worsening x1 day. RD Note (08/29): Patient was sleeping. Patient's son was at bedside. Per son, patient drank 1 can of ensure, apple juice and ate some crackers for breakfast this morning. Problem with: N/V/D/C: none per pt son Problems with: Chewing: Swallowing: pt has dentures Current appetite: poor Recent wt change: lost 5# x 1 month %wt change: 5% Vitamin/Supplement use: none Special diet at home: Regular Physical activity: walking around the house Nutrition education given: Spoke with patient's son about the importance of nutrition and PO. Food-drug interactions: Colace: high fiber w/ 6156-7515 ml fluid/day Education given: N/A Estimated Nutritional Needs Based on current body weight (41.7 kg) Energy: 1258-8743 kcal/day (35-40 kcal/kg for malnutrition) Protein: 50-58 g/day (1.2-1.4 g/kg for malnutrition) Fluid: 8157-1056 mL/day (1 mL/kcal) Nutrition Diagnosis: 1. Malnutrition related to poor PO, increased nutrient needs as evidenced by BMI 18 kg/m2 (underweight for geriatric age) Intervention 1. Recommend continuing puree diet with Ensure BID. Monitor/Evaluate Goal: PO intake at least 75% of estimated needs Monitor: PO intake, Labs, GI function F/U in 3-5 days as moderate risk 09/01-
--- NOTE | 2019-08-29 11:44 | NUR ---
1. Recommend continuing puree diet with Ensure BID.
[2019-08-29 12:29] VITALS: BP 134/61
--- NOTE | 2019-08-29 12:38 | NUR ---
PATIENT SITTING UP IN BED EATING LUNCH AT THIS TIME WITH ASSISTANCE FROM SON. PATIENT TOLERATING DIET WELL. NO APPARENT DISTRESS OR DISCOMFORT NOTED. ALL NEEDS ATTENDED TO. WILL CONTINUE TO MONITOR
[2019-08-29 16:43] VITALS: BP 142/69
--- NOTE | 2019-08-29 18:49 | NUR ---
PATIENT RESTING COMFORTABLY IN BED AT THIS TIME. NO APPARENT DISTRESS OR DISCOMFORT NOTED. IV PATENT AND INTACT. ALL QUESTIONS AND CONCERNS ADDRESSED. ALL NEEDS ATTENDED TO. SON AT BEDSIDE. SAFETY PRECAUTIONS MAINTAINED. WILL ENDORSE ALL CARE TO RUNNING INSTRUCTOR NURSE
--- NOTE | 2019-08-29 19:28 | NUR ---
RECEIVED PATIENT IN BED AWAKE CONFUSED WITH NO SIGN OF DISTRESS, PATIENT CALM AND NOT COMABTIVE THIS TIME. SON AT BEDSIDE. TELE#2 NSR ON MONITOR, NO INDICATION OF CHEST DISCOMFORT NOTED. BREATHING EASY AND NONLABOR ON O2 AT 2L VIA NC SATTING AT 97. IV TO RFA INTACT AND INFUSING WELL. WILL CONTINUE TO MONITOR.
[2019-08-29 21:30] VITALS: BP 137/69
--- NOTE | 2019-08-30 00:12 | NUR ---
PATIENT APPEAR TO BE SLEEPING THIS TIME, BREATHING EASY AND NONLABOR. WILL CONTINUE TO MONITOR.
--- NOTE | 2019-08-30 05:17 | NUR ---
CHECKED AT INTERVALS FOR NEEDS AND SAFETY, REPOSITIONED FOR COMFORT. KEPT ON ISOLATION PRECAUTION.
--- NOTE | 2019-08-30 06:06 | NUR ---
HAD TWO SMALL BM IN SMALL AMOUNT. REPOSITIONED FOR COMFORT. WILL ENDORSE CONTINOUS CARE TO AM SHIFT.
[2019-08-30 06:09] VITALS: BP 157/83
--- NOTE | 2019-08-30 07:52 | NUR ---
RECEIVED PATIENT FROM EVANS AGRCIA. PATIENT IN BED SLEEPING AT THIS TIME. NO SIGNS OF DISTRESS, PAIN, OR SOB. WILL CONTINUE TO MONITOR AND AWAIT FOR MEDICINE AIDE ALYSE TO UPDATE TO PLAN OF CARE. CALL LIGHT IN REACH, PATIENT ACROSS FROM NURSES STATION.
[2019-08-30 09:10] VITALS: BP 156/99
[2019-08-30 12:24] VITALS: BP 156/99
--- NOTE | 2019-08-30 14:21 | NUR ---
PHYSICAL THERAPY DAILY NOTES CO-SIGN All documentation done by the Captain Airline Pilot for 08/30/19 has been reviewed. I agree with the documentation. Reviewed/Co-Signed by: Brenda Mcclain PT Documentation Done by: GENET JONES PTA
--- NOTE | 2019-08-30 15:41 | NUR ---
ATTEMPTED TO GIVE REPORT TO [facility] FOR PATIENT [facility]FER. WAS UNABLE TO GIVE REPORT [facility] STATED THAT THEY HAD NOT ACCEPTED PATIENT YET. CHARGE NURSE JENNA AND VIDEOTAPE RECORDING ENGINEER CLARIBEL NOTIFIED. NOW [facility] DENIED PATIENT TRANSFER. FAMILY MADE AWARE. PATIENT HAD ADDITIONAL EVALUATION FROM SECONDARY FACILITY. WILL AWAIT MORE INFO FROM CASE MANAGEMENT ABOUT PATIENT DESTINATION. CALL LIGHT IN REACH AT THIS TIME.
[2019-08-30 16:17] VITALS: BP 160/58
--- NOTE | 2019-08-30 17:06 | NUR ---
REPORT GIVEN TO YAEL AT [facility]. FAMILY AWARE OF TRANSFER TO [facility] NOW. TRANSFER CONSENT SIGNED, SIGNATURES OBTAINED, PACKET PREPARED FOR FAMILY AND TRANSPORT. NO COMPLAINTS AT THIS TIME. FAMILY AT BEDSIDE.
--- NOTE | 2019-08-30 18:19 | NUR ---
PATIENT IN BED, EATING DINNER TRAY W ASSIST FROM SON. NO SIGNS OF PAIN OR DISTRESS. PATIENT READY FOR TRANSPORT [employer] SCHEDULED FOR 1999. WILL ENDORSE TO ONCOMING NURSE. CALL LIGHT IN REACH AT THIS TIME.
--- NOTE | 2019-08-30 20:17 | NUR ---
premier transportation here, report given to [facility] transport personnel, removed id band, transport paperworks given to them. patient in stable condition, son with patient, transported via stretcher, with belongings.
== END 2019-08-30 20:20 | DRG 871 ==
LOC: ED 20:21 → IC 08-26 00:16 → DU 08-26 00:16 → IC 08-26 07:57 → MU 08-27 17:01 → DU 08-27 17:25 → MU 08-30 11:00
PROVIDERS: Emergency Medicine; Family Medicine; ADMIT Internal Medicine
DX: A41.51 Sepsis due to Escherichia coli [E. coli] (principal); R65.21 Severe sepsis with septic shock; N17.0 Acute kidney failure with tubular necrosis; E43 Unspecified severe protein-calorie malnutrition; J69.0 Pneumonitis due to inhalation of food and vomit; N39.0 Urinary tract infection, site not specified; I69.354 Hemiplegia and hemiparesis following cerebral infarction affecting left non-dominant side; Z68.1 Body mass index [BMI] 19.9 or less, adult; Z16.24 Resistance to multiple antibiotics; E78.5 Hyperlipidemia, unspecified; E86.1 Hypovolemia; E83.51 Hypocalcemia; J44.9 Chronic obstructive pulmonary disease, unspecified; I10 Essential (primary) hypertension; G30.9 Alzheimer's disease, unspecified; F02.80 Dementia in other diseases classified elsewhere, unspecified severity, without behavioral disturbance, psychotic disturbance, mood disturbance, and anxiety; D64.9 Anemia, unspecified
CPT/HCPCS: 83880; 97110-GP; 97116-GP; 97530-GP; G0378; J0456; J0696; J1265; J1630; J1644; J1720; J1940; J2060; J2185 ×2; J2370; J3490; J7030; J7040; J7060; Q0092

== ENCOUNTER 2019-09-18 07:46 | Inpatient (IN) | payer OTHER ==
[~2019-09-18] VITALS: Ht 152.4 cm; Wt 42.2 kg
[~2019-09-18 07:46] MED LIST changes: +MER500I IV
[2019-09-18 07:53] VITALS: Ht 152.4 cm; Wt 42.2 kg
[2019-09-18 08:38] LABS: BASOPHIL % 0.4 % (0-2); PLATELET COUNT 220 x10^3mcL (130-400)
[2019-09-18 08:39] LABS: RED CELL DISTRIBUTION WIDTH 14.8 % (11.5-14.5)
[2019-09-18 09:06] LABS: ALBUMIN 3.2 g/dL (3.4-5.0); ALKALINE PHOSPHATASE 105 U/L (46-116); ALT/SGPT 29 U/L (14-59); AST/SGOT 24 U/L (15-37); BILIRUBIN TOTAL 0.5 mg/dL (0.20-1.00); CARBON DIOXIDE 24.4 mmol/L (21-32); CHLORIDE SERUM 107 mmol/L (98-107); CREATININE SERUM 1.1 mg/dL (0.6-1.0); GLUCOSE SERUM 101 mg/dL (74-106); POTASSIUM SERUM 4.3 mmol/L (3.5-5.1); SODIUM SERUM 138 mmol/L (136-145); TOTAL PROTEIN, SERUM 6.6 g/dL (6.4-8.2)
[2019-09-18 09:09] LABS: microscopic required? YES; urine erythrocyte NEGATIVE (NEGATIVE)
[2019-09-18 09:09] LABS: CALCIUM 7.7 mg/dL (8.5-10.1)
[2019-09-18] MEDS ORDERED: ATORVASTATIN CA40 M1 PO (11:19)
[2019-09-18] MEDS ORDERED: MEMANTINE HCL E21 MG PO (11:19)
[2019-09-18] MEDS ORDERED: CLOPIDOGREL75 M1 PO (11:20)
[2019-09-18 13:45] LABS: MAGNESIUM 2.1 mg/dL (1.8-2.4); PHOSPHOROUS 3.1 mg/dL (2.5-4.9)
[2019-09-18 16:16] VITALS: BP 145/61
[2019-09-18 17:36] VITALS: BP 150/84
[2019-09-18 19:05] VITALS: BP 132/73
[2019-09-19 05:33] VITALS: BP 121/60
[2019-09-19 06:42] LABS: BASOPHIL % 0.4 % (0-2); PLATELET COUNT 213 x10^3mcL (130-400)
[2019-09-19 06:53] LABS: CALCIUM 8.1 mg/dL (8.5-10.1); CARBON DIOXIDE 22.7 mmol/L (21-32); CHLORIDE SERUM 112 mmol/L (98-107); CREATININE SERUM 0.7 mg/dL (0.6-1.0); GLUCOSE SERUM 95 mg/dL (74-106); POTASSIUM SERUM 4.4 mmol/L (3.5-5.1); SODIUM SERUM 143 mmol/L (136-145)
[2019-09-19 07:53] LABS: RED CELL DISTRIBUTION WIDTH 14.6 % (11.5-14.5)
[2019-09-19 09:09] VITALS: BP 134/65
[2019-09-19 18:15] VITALS: BP 167/74
[2019-09-19 18:25] VITALS: BP 145/75
[2019-09-19 20:28] VITALS: BP 135/63
[2019-09-20 05:16] VITALS: BP 147/57
[2019-09-20 09:00] VITALS: BP 125/62
[2019-09-20 16:49] VITALS: BP 120/60
[2019-09-20 21:04] VITALS: BP 128/68
[2019-09-21 05:17] VITALS: BP 112/50
[2019-09-21 09:18] VITALS: BP 137/54
[2019-09-21 11:11] VITALS: BP 137/54
[2019-09-21] MEDS ORDERED: AMO500 PO (11:27)
== END 2019-09-21 13:06 | disposition home or self-care (01) | DRG 640 ==
LOC: ED 07:46 → MU 11:30
PROVIDERS: Emergency Medicine; ADMIT General Practice
DX: E86.1 Hypovolemia (principal); N17.0 Acute kidney failure with tubular necrosis; N39.0 Urinary tract infection, site not specified; I69.354 Hemiplegia and hemiparesis following cerebral infarction affecting left non-dominant side; E44.0 Moderate protein-calorie malnutrition; Z68.1 Body mass index [BMI] 19.9 or less, adult; G90.8 Other disorders of autonomic nervous system; B95.2 Enterococcus as the cause of diseases classified elsewhere; D64.9 Anemia, unspecified; G30.9 Alzheimer's disease, unspecified; F02.80 Dementia in other diseases classified elsewhere, unspecified severity, without behavioral disturbance, psychotic disturbance, mood disturbance, and anxiety; I10 Essential (primary) hypertension; E78.5 Hyperlipidemia, unspecified; Z91.81 History of falling; Z87.440 Personal history of urinary (tract) infections; Z96.642 Presence of left artificial hip joint
CPT/HCPCS: 82962; 97116-GP; 97530-GP; G0378; J0696; J2185; J3370; J7030; J7060; Q0092